=== PATIENT | female | born 1990 ===

== ENCOUNTER 2021-12-23 14:58 | Outpatient (CLI) | payer OTHER | END 2021-12-23 17:58 | disposition home or self-care (01) | LOC: NST 14:58 | PROVIDERS: ATTEND Obstetrics & Gynecology Maternal & Fetal Medicine | DX: Z34.83 Encounter for supervision of other normal pregnancy, third trimester (principal) ==

== ENCOUNTER 2021-12-26 13:15 | Inpatient (IN) | payer OTHER ==
[~2021-12-26] VITALS: Ht 154.9 cm; Wt 68.9 kg
[2022-01-03] MEDS ORDERED: PRENATAL TABLE1 EAC3 PO (19:34)
== END 2022-01-05 12:12 | disposition home or self-care (01) | DRG 807 ==
LOC: EDUNIT# 13:15 → OB/GYN 12-31 13:15 → LDR 01-03 18:49 → OB/GYN 01-03 18:49
PROVIDERS: ADMIT Obstetrics & Gynecology; ATTEND Obstetrics & Gynecology
PROC: 10E0XZZ Delivery of Products of Conception, External Approach (ICD-10-PCS; principal; 2022-01-03)
PROC: 4A1HXCZ Monitoring of Products of Conception, Cardiac Rate, External Approach (ICD-10-PCS; 2022-01-03)
DX: O80 Encounter for full-term uncomplicated delivery (principal); Z37.0 Single live birth; Z3A.40 40 weeks gestation of pregnancy; Z20.822 Contact with and (suspected) exposure to COVID-19